=== PATIENT | female | born 1990 ===

== ENCOUNTER 2025-02-06 18:43 | Outpatient (CLI) | payer OTHER | END 2025-02-06 20:33 | disposition home or self-care (01) | LOC: NST 18:43 | PROVIDERS: ATTEND Obstetrics & Gynecology Gynecology | DX: Z34.83 Encounter for supervision of other normal pregnancy, third trimester (principal) ==

== ENCOUNTER 2025-02-20 09:41 | Outpatient (CLI) | payer OTHER | END 2025-02-20 10:30 | disposition home or self-care (01) | LOC: NST 09:41 | PROVIDERS: ATTEND Obstetrics & Gynecology Gynecology | DX: Z34.83 Encounter for supervision of other normal pregnancy, third trimester (principal) ==

== ENCOUNTER 2025-03-15 14:45 | Inpatient (IN) | payer OTHER ==
[~2025-03-15] VITALS: Ht 149.9 cm; Wt 3.2 kg
[2025-03-27 16:19] VITALS: BP 128/85
[2025-03-27 16:49] LABS: BASO % 0.3 % (0.1-1.2); EOS # 0.03 (0.04-0.54); EOS % 0.3 % (0.7-7.0); LYMPH # 2.09 (1.18-3.74); LYMPH % 18.0 % (19.3-53.1); MEAN PLATELET VOLUME 9.20 fl (9.4-12.4); MONO # 1.05 (0.24-0.82); MONO % 9.1 % (4.7-12.5); NEUT # 8.33 (1.56-6.13); NEUT % 71.8 % (34.0-71.1); RED CELL DISTRIBUTION WIDTH 13.2 % (11.6-14.4)
[2025-03-27 16:50] LABS: URINE APPEARANCE Clear; URINE BILIRRUBIN Negative (NEGATIVE); URINE BLOOD Trace; URINE COLOR Yellow; URINE GLUCOSE Negative (NEGATIVE); URINE KETONE Trace (NEGATIVE); URINE LEUKOCYTE Negative; URINE NITRATE Negative; URINE PROTEIN Negative (NEGATIVE); URINE UROBILINOGEN 1.0 E.U./dl
[2025-03-27 16:51] LABS: URINE BACTERIA 2263.1 uL (0.0-1933); URINE EPITHELIAL CELLS 27.0 uL (0.0-38.8); URINE RBC 16.8 uL (0.0-20.8); URINE WBC 25.2 uL (0.0-23.2)
[2025-03-27] MEDS ORDERED: MISOPROSTOL 25 MCG TABLET VAG ONE (17:00)
[2025-03-27] MEDS ORDERED: RINGERS SOLUTION,LACTATED 1,000 ML IV SCH (17:00)
[2025-03-27] MEDS ORDERED: MORPHINE SULFATE 4 MG/ML CARTRIDGE IV PRN (17:00)
[2025-03-27 17:06] LABS: URINE CAST 0.14 uL (0.0-1.40); URINE MUCUS SCANT
[2025-03-27 17:09] LABS: INR 0.95
[2025-03-27 17:13] LABS: ALT/SGPT 101.0 U/L (12-78); AST/SGOT 58.0 U/L (15-37); BILIRUBIN TOTAL 0.33 mg/dL (0.3-1.2); BUN CREA RATIO 22.0 (7.0-25.0); CREATININE SERUM 0.46 mg/dL (0.55-1.02); GFR 154.58; GLOBULINA 3.8 G/DL (2.4-3.5); GLUCOSE FASTING 75.0 mg/dL (65-100); OSMOLALITY SERUM 275.0 MOSM/KG (275-295)
[2025-03-27 19:36] VITALS: BP 121/93
[2025-03-27 23:30] VITALS: BP 110/65
[2025-03-28 03:01] VITALS: BP 90/60
[2025-03-28 07:36] VITALS: BP 116/67
[2025-03-28] MEDS ORDERED: OXYTOCIN 500 ML IV ONE (09:30)
[2025-03-28 11:26] VITALS: BP 125/65
[2025-03-28 15:23] VITALS: BP 123/72
[2025-03-28 18:33] VITALS: BP 118/56
[2025-03-28] MEDS ORDERED: ERYTHROMYCIN BASE OPHT 1GM EACH TUBE OP ONE (21:15)
[2025-03-28] MEDS ORDERED: OXYTOCIN 10 UNITS/ML VIAL IV ONE (21:15)
[2025-03-28] MEDS ORDERED: KETOROLAC TROMETHAMINE 30 MG VIAL IV SCH (21:53)
[2025-03-28] MEDS ORDERED: MORPHINE SULFATE 4 MG/ML VIAL IV SCH (21:53)
[2025-03-28] MEDS ORDERED: OXYTOCIN 1,000 ML IV ONE (22:00)
[2025-03-28] MEDS ORDERED: MORPHINE SULFATE 4 MG/ML VIAL IV ONE ×2 (23:25→23:55)
[2025-03-29 02:52] VITALS: BP 108/66
[2025-03-29] MEDS ORDERED: ACETAMINOPHEN 500 MG GEL..CAP PO SCH (06:00)
[2025-03-29 06:48] LABS: BASO % 0.2 % (0.1-1.2); EOS # 0.00 (0.04-0.54); EOS % 0.0 % (0.7-7.0); LYMPH # 1.27 (1.18-3.74); LYMPH % 6.3 % (19.3-53.1); MEAN PLATELET VOLUME 9.40 fl (9.4-12.4); MONO # 1.94 (0.24-0.82); MONO % 9.6 % (4.7-12.5); NEUT # 16.90 (1.56-6.13); NEUT % 83.5 % (34.0-71.1); RED CELL DISTRIBUTION WIDTH 13.3 % (11.6-14.4)
[2025-03-29] MEDS ORDERED: AZITHROMYCIN 500 MG VIAL IV NR (08:00)
[2025-03-29 08:32] VITALS: BP 99/66; O2SAT 98
[2025-03-29] MEDS ORDERED: GABAPENTIN 300 MG CAPSULE PO SCH (09:00)
[2025-03-29] MEDS ORDERED: CEFAZOLIN SODIUM 1,000 MG VIAL IV SCH (09:00)
[2025-03-29] MEDS ORDERED: SIMETHICONE 125 MG CAPSULE PO SCH (09:00)
[2025-03-29] MEDS ORDERED: PNV,CALCIUM 72/IRON/FOLIC ACID 1 TAB TABLET PO SCH (09:00)
[2025-03-29] MEDS ORDERED: DOCUSATE SODIUM 100MG CAP PO SCH (09:00)
[2025-03-29 16:00] VITALS: BP 110/76
[2025-03-29 20:00] VITALS: BP 93/60
[2025-03-30 02:16] VITALS: BP 95/61; O2SAT 98
[2025-03-30 08:37] VITALS: BP 109/73
== END 2025-03-30 15:14 | disposition home or self-care (01) | DRG 788 ==
LOC: SURH 03-25 14:45 → LDR 03-27 16:02 → O/R 03-28 21:31 → OB/GYN 03-28 23:04
PROVIDERS: Obstetrics & Gynecology Gynecology; ADMIT Obstetrics & Gynecology Maternal & Fetal Medicine; ATTEND Obstetrics & Gynecology Maternal & Fetal Medicine
PROC: 4A1HXCZ Monitoring of Products of Conception, Cardiac Rate, External Approach (ICD-10-PCS; 2025-03-27)
PROC: 3E0P7VZ Introduction of Hormone into Female Reproductive, Via Natural or Artificial Opening (ICD-10-PCS; 2025-03-27)
PROC: 3E033VJ Introduction of Other Hormone into Peripheral Vein, Percutaneous Approach (ICD-10-PCS; 2025-03-28)
PROC: 10D00Z1 Extraction of Products of Conception, Low, Open Approach (ICD-10-PCS; principal; 2025-03-28 22:15)
DX: O82 Encounter for cesarean delivery without indication (principal); O62.1 Secondary uterine inertia; Z3A.40 40 weeks gestation of pregnancy; Z37.0 Single live birth

== ENCOUNTER 2025-03-26 18:52 | Outpatient (CLI) | payer OTHER | END 2025-03-26 20:42 | disposition home or self-care (01) | LOC: NST 18:52 | PROVIDERS: ATTEND Obstetrics & Gynecology Gynecology | DX: Z34.83 Encounter for supervision of other normal pregnancy, third trimester (principal) ==